=== PATIENT | male | born 2000 | race Caucasian/White ===

== ENCOUNTER 2024-06-28 22:35 | Emergency (ER) | payer SELFPAY ==
[~2024-06-28] VITALS: Ht 188 cm; Wt 72.6 kg
[2024-06-28] MEDS ORDERED: Midazolam HCl 1MG / ML 2ML Vial IM ONE (23:00)
[2024-06-28 23:29] LABS: BASOPHILS ABSOLUTE AUTO 0.06 K/mm3 (0.00-0.23); BASOPHILS PERCENT AUTO 1 % (0-2); EOSINOPHILS PERCENT AUTO 1 % (0-6); Hematocrit 48.4 % (37.0-53.0); Hemoglobin 16.2 g/dL (13.5-17.5); IMMATURE GRAN ABSOLUTE AUTO 0.11 K/mm3 (0.00-0.10); IMMATURE GRAN PERCENT AUTO 1 % (0-1); LYMPHOCYTES ABSOLUTE AUTO 2.28 K/mm3 (0.84-5.20); LYMPHOCYTES PERCENT AUTO 22 % (21-46); MONOCYTES ABSOLUTE AUTO 0.76 K/mm3 (0.16-1.47); MONOCYTES PERCENT AUTO 7 % (4-13); Mean Corpuscular HGB 29.2 pg (26.0-34.0); Mean Corpuscular HGB Conc 33.5 g/dL (31.5-36.5); Mean Corpuscular Volume 87 fL (80-100); Mean Platelet Volume 9.8 fL (9.1-12.4); NEUTROPHILS ABSOLUTE AUTO 7.16 K/mm3 (1.96-9.15); NEUTROPHILS PERCENT AUTO 68 % (41-73); Platelet Count 331 K/mm3 (150-400); RDW Coefficient Variation 12.7 % (11.7-14.2); RDW Standard Deviation 39.8 fL (35.1-46.3); Red Blood Cell Count 5.54 M/mm3 (4.30-5.90); White Blood Cell Count 10.47 K/mm3 (4.00-11.30)
[2024-06-28 23:50] LABS: Prothrombin Time Results 10.7 Sec (9.7-11.5)
[2024-06-29 00:02] LABS: Salicylate <1.7 mg/dL (2.8-20.0)
[2024-06-29 00:13] LABS: Alanine Aminotransfer (ALT/SGP 24 U/L (12-78); Albumin, Blood 5.1 g/dL (3.4-5.0); Albumin/Globulin Ratio 1.7 (0.8-1.8); Alk Phos 88 U/L (50-136); Anion Gap 10 mmol/L (3-11); Aspartate Aminotrans (AST/SGOT 23 U/L (12-37); Bilirubin, Total 0.4 mg/dL (0.1-1.0); Blood Urea Nitrogen 9 mg/dL (8-24); CO2, Blood 25 mmol/L (21-32); Calcium, Blood 8.8 mg/dL (8.5-10.1); Chloride, Blood 106 mmol/L (98-108); Creatinine, Blood 0.82 mg/dL (0.60-1.20); Ethanol (Alcohol), Blood, Med 313 mg/dL; Glomerular Filtration Rate 128 (60-); Glucose, Blood 328 mg/dL (70-99); Potassium, Blood 4.1 mmol/L (3.5-5.5); Sodium, Blood 137 mmol/L (136-145); Total Protein, Blood 8.1 g/dL (6.4-8.2)
[2024-06-29 00:14] LABS: Acetaminophen, Random <2.0 ug/mL (10.0-30.0)
[2024-06-29] MEDS ORDERED: Lidocaine 4% 1 Patch TOP ONE (05:40)
[2024-06-29] MEDS ORDERED: Ketorolac Tromethamine 30mg Vial IV ONE (06:25)
[2024-06-29] MEDS ORDERED: Prednisone10 MG PO (07:56)
== END 2024-06-29 08:10 | disposition home or self-care (01) ==
LOC: ER 22:35
PROVIDERS: Student in an Organized Health Care Education/Training Program
DX: S22.059A Unspecified fracture of T5-T6 vertebra, initial encounter for closed fracture (principal); F10.129 Alcohol abuse with intoxication, unspecified; F19.90 Other psychoactive substance use, unspecified, uncomplicated; W19.XXXA Unspecified fall, initial encounter
CPT/HCPCS: 70450; 71045; 71260; 72125; 72170; 74177; 80053; 80320; 82550; 82947; 85025; 85610; 86850; 86900; 86901; 96374-59; 99285-25; A9270; G0480; J1885; Q9967